=== PATIENT | male | born 2000 | race Caucasian/White ===

== ENCOUNTER 2021-01-20 08:38 | Emergency (ER) | payer MEDICAID, OTHER ==
[~2021-01-20] VITALS: Ht 182.9 cm; Wt 63.5 kg
[2021-01-20 08:43] VITALS: BP 121/69
[2021-01-20] MEDS ORDERED: TETanus/Pertussis (Acell)/Diphther VAC/PF (Tdap-Adult) 0.5ml syringe IMVAC ONE (08:45)
[2021-01-20] MEDS ORDERED: LIDOcaine 1% W/epiNEPHrine 1:200,000 10ml vial IJ ONE (08:45)
== END 2021-01-20 09:44 | disposition home or self-care (01) ==
LOC: ER 08:38
DX: S61.213A Laceration without foreign body of left middle finger without damage to nail, initial encounter (principal); Z88.0 Allergy status to penicillin; Z20.3 Contact with and (suspected) exposure to rabies; X58.XXXA Exposure to other specified factors, initial encounter; Y93.89 Activity, other specified; Y92.89 Other specified places as the place of occurrence of the external cause; Y99.8 Other external cause status
CPT/HCPCS: 12001; 90471; 90715; 99283

== ENCOUNTER 2024-09-20 13:46 | Emergency (ER) | payer MEDICAID ==
[~2024-09-20] VITALS: Ht 180.3 cm; Wt 63.6 kg
[2024-09-20 14:01] VITALS: BP 123/79; PULSE 73; RESP 15; O2SAT 98
--- NOTE | 2024-09-20 15:02 | Physician Documentation ---
History of Present Illness ~ Chief Complaint: Head Injury Stated Complaint: HEAD LAC Time Seen by MD: 14:35 OK to notify your PCP?: Yes Source: patient, family HPI Patient is seen today with complaints of laceration to his head in the frontal area when he was crawling under house and hit his head on a sprinkler. Patient denies any loss of consciousness. Patient states he he was able to stop the bleeding but has no other concern or complaint at this time. Patient complains of 3 cm laceration to the scalp. Tetanus within 5 years?: Yes (updating today 01/20/21) Medication Reconciliation Allergies: Coded Allergies: Penicillins (Verified Allergy, Unknown, 07/29/14) Past Medical History Past Surgical History: no surgical history Lives with: Mother, Father Lives In: Home Occupation: student, child Review of Systems Constitutional: Denies: chills, fever, weakness Eyes: Denies: pain, blurred vision ENT: Denies: ear pain, nose pain, throat pain, mouth pain Respiratory: Denies: cough, shortness of breath Cardiovascular: Denies: chest pain, palpitations Gastrointestinal: Denies: abdominal pain, nausea, vomiting Genitourinary: Denies: burning, dysuria Male Genitalia: Denies: penile discharge, testicular pain Neurological: Denies: headache, dizziness Musculoskeletal: Denies: pain, swelling Integumentary: Denies: rash, lesions Allergic/Immunologic: Denies: hives, itching Hematologic/Lymphatic: Denies: no symptoms reported Psychiatric: Denies: depression, anxiety Physical Exam Vital Signs: Temperature: 97.9, Heart Rate: 73, Respiratory Rate: 15, BP: 123/79, Pulse Oximetry: 98, Weight: 63.640 Oxygen Flow Rate: 0 Physical Exam General: Awake and Alert, no acute distress. HEENT: Conjunctiva pink, Sclera clear, Mucus Membranes moist. Neck: Supple without masses and tenderness. Resp: Unlabored. Lungs clear to auscultation bilaterally. Heart: Regular Rate and rhythm, normal S1 and S2 without murmur, rub or gallop. Abdomen: Soft and non tender no organomegaly Extremities: No cyanosis,clubbing or edema. Skin: Warm and Dry. Procedures Laceration/Wound Repair Laceration/Wound Repair : Procedure Note Procedure note: Patient declined local anesthesia with lidocaine at this time. Eight araceli were placed using staple gun across the 3 cm laceration in the area of the frontalis just within the hairline. Two patient tolerated well. Progress Results/Orders Results/Orders Completed Orders - PATRICIA DARBY Lidocaine 1% W/Epi 1:100,000 (Xylocaine (09/20/24 15:01) Vital Signs 09/20/24 14:01 Temp 97.9 Pulse 73 Resp 15 B/P (MAP) 123/79 Pulse Ox 98 O2 Flow Rate 0 Medical Decision Making Findings Patient is seen today with complaints of laceration to his head in the frontal area when he was crawling under house and hit his head on a sprinkler. Patient denies any loss of consciousness. Patient states he he was able to stop the bleeding but has no other concern or complaint at this time. Patient complains of 3 cm laceration to the scalp. Patient declined anesthesia with lidocaine. Patient's wound was irrigated c opiously with normal saline and iodine. Eight araceli were used to achieve closure. Patient tolerated well. Patient will follow up in 7-10 days for removal of araceli at the clinic or at urgent care or he may return to the ED for removal. Patient will return to ED with any worsening, concerning or changing symptoms. Shared decision-making utilized today. Departure Disposition: HOME / SELF CARE / HOMELESS Impression: Primary Impression: Laceration Additional Impression: Injury of head Qualified Codes: S09.90XA - Unspecified injury of head, initial encounter Condition: Improved Discharge Instructions: Laceration Care, Adult, [id number] Additional Instructions: Patient declined anesthesia with lidocaine. Patient's wound was irrigated copiously with normal saline and iodine. Eight araceli were used to achieve closure. Patient tolerated well. Patient will follow up in 7-10 days for removal of araceli at the clinic or at urgent care or he may return to the ED for removal. Patient will return to ED with any worsening, concerning or changing symptoms. Shared decision-making utilized today. Referrals: NO PRIMARY CARE PROVIDER (PCP) Signature Scribe Signature: No scribe Attestation: No scribe PATRICIA DARBY September 20, 2024 15:02
[2024-09-20] MEDS: LIDOcaine 1% W/epiNEPHrine 1:100,000 20ml vial SQ STA (15:25)
[2024-09-20 16:09] VITALS: TEMP 97.9
== END 2024-09-20 16:14 | disposition home or self-care (01) ==
LOC: ER 13:46
DX: S01.01XA Laceration without foreign body of scalp, initial encounter (principal); Z88.0 Allergy status to penicillin; W22.8XXA Striking against or struck by other objects, initial encounter; Y93.89 Activity, other specified; Y92.89 Other specified places as the place of occurrence of the external cause; Y99.8 Other external cause status
CPT/HCPCS: 12002; 99282; J7030